=== PATIENT | male | born 1955 | race Two or more races ===

== ENCOUNTER 2024-07-02 20:02 | Emergency (ER) | payer MEDICARE, OTHER ==
[~2024-07-02] VITALS: Ht 182.9 cm; Wt 100.0 kg
[2024-07-02 20:02] VITALS: BP 0/0; PULSE 0; RESP 0; O2SAT 0
--- NOTE | 2024-07-02 20:29 | ED.PDOC ---
CPR-HPI HPI Comments 68 y/o M BRI, presents to the ED for CC of full arrest. Per EMS, patient is coming from home where he was witnessed by family to collapse after complaining of back pain. Per EMS, emergency medical personnel received the call at 0; and arrived to the scene at 1954. In route to ED, patient received x5 epinephrin and x2 Narcan with no ROSC; patient was in PEA 80-138. Patient arrived to the ED at 1999 where compressions were administered via SOREN device. Time Seen by MD: 20:00 Reviewed Notes: Nurses Notes, Preventive Maintenance Engineer Notes, Medications, Allergies Information Source: Patient, Emergency Med Personnel Mode of Arrival: EMS Timing: Minutes Duration: Down time prior EMS: (35), Total time prior hopital: (5) Onset: At rest Available Hx: Unknown Inital rhythm: PEA Treatment: CPR, Intubation Associated signs and symptoms: None Past Medical History PAST MEDICAL HISTORY: HTN Surgical History: Unknown Family History Family History: Unknown Social History Smoker: Unobtainable Alcohol: Unobtainable Drugs: Unobtainable Lives In: Unobtainable Unable to Obtain due to: Medical Urgency Physical Exam General Appearance: Severe Distress HEENT: Other (Pupils are fixed and mid-range) Neck: Supple Respiratory: Other (The patient was being ventilated by bag out mass) Cardiovascular: Other (Pulseless) Breast Exam: Deferred Gastrointestinal: No Organomegaly, Soft Genitalia: Deferred Pelvic: Deferred Rectal: Deferred Extremities: No pedal edema, Other (Pulseless) Musculoskeletal : Apperance: Normal Neurologic: psychiatric orderly II-XII nml as Tested, Other (GCS of three) Cerebellar Function: Unable to Test Reflexes: None Skin: Dry, Pallor, Warm Lymphatic: No Adenopathy Was a procedure done? Was a procedure done?: Yes Sedation Sedation?: No Intubation Indication: Respiratory Insufficiency Prep: No Preoxygenation Pretreated with: Nothing Medicated with: Nothing Intubation Approach: Orotracheal Intubation size: cm (8.0) Informed consent obtained: Yes Risks/benefits/alt described: No Differential Dx CPR Differential Diagnosis: Cardiopulmonary arrest X-Ray, Labs, Meds, VS Vital Signs Date Time Temp Pulse Resp B/P (MAP) Pulse Ox O2 Delivery O2 Flow Rate FiO2 07/02/24 20:42 0 0 Ambu-Bag 0 07/02/24 20:02 97.9 0 0 0/0 (0) 0 Despite our efforts, the patient has ACLS protocol The patient was intubated upon arrival Time of 1ST Reevaluation: 20:30 Reevaluation 1ST: Unchanged Patient Education/Counseling: Other (We discussed the findings with the patient's family) Family Education/Counseling: Diagnosis, Treatment Departure 1 Departure Time of Disposition: 21:19 Impression: Primary Impression: Cardiopulmonary arrest Disposition: 20 Condition: Other (The patient was ) Critical Care Note Critical Care Time?: No Heart Score Heart Score: Heart Score Response (Comments) Value History N/A 0 EKG N/A 0 Age N/A 0 Risk Factors N/A 0 Troponin N/A 0 Total 0 Stability Stability form required: No I personally scribed for BOB GEORGE MD ([email or web address]) on 07/02/24 at 20:28. Electronically submitted by Fiona Wu ([email or web address]). I personally scribed for BOB GEORGE MD ([email or web address]) on 07/02/24 at 20:35. Electronically submitted by Fiona Wu ([email or web address]). BOB GEORGE MD Jul 02, 2024 20:28
--- NOTE | 2024-07-02 20:42 | RESUS ---
CODE BLUE ASSESSSMENT History of Events History of Events: Pt BIBA with CPR in progress via SOREN. Per EMS, pt was complaining of back pain when he stood up and collapsed. Bystander CPR initiated. Pt has been PEA throughout transport. IO to proximal tibia, Epi x5 rounds given, Narcan 2mg given, and attempted intubation by EMS unsuccessful. Field BS 125. Initial Information Date: Jul 02, 2024 Time: 20:00 Location of Arrest: In Field Arrest Witnessed: Yes CPR started by whom: Bystander Last seen well: 1914 Pre-Hospital Care: ACLS Type of arrest: Cardiac, Respiratory, Adult, Witnessed Spontaneous Respirations: No Pulse Present: No Monitoring: ECG, Pulse Oximetry, Telemetry Crash Cart Opened and Supplies: Yes Airway Ventilation Breathing at Onset: Assisted Oxygen Delivery Method: Ambu-Bag Time of first Assisted Ventila: 20:00 Artificial Ventilation: Bag/Mask Intubation Time: 20:01 Intubation Size: 8.0 cuffed Intubated by: Dr Campos Intubation Attempts: 1 (1 attempt by ER staff; 1 attempt in-field by EMS) Intubated orally: Yes Intubated Nasaly: No Tube secured at: 24 (cm @ lip) Cricoid pressure done: Yes CO2 indicator used: Yes Confirmation: Auscultation, Exhaled CO2 Circulation Circulation #1: Time: 20:01 Pulse Rate (adult): 0 Blood Pressure Systolic: 0 Blood Pressure Diastolic: 0 Temperature (Fahrenheit): 97.9 (F; Rectal) Circulation #2: Time: 20:04 Pulse Rate (adult): 0 Blood Pressure Systolic: 0 Blood Pressure Diastolic: 0 Circulation Comment: PEA Circulation #3: Time: 20:06 Pulse Rate (adult): 0 Blood Pressure Systolic: 0 Blood Pressure Diastolic: 0 Circulation Comment: PEA Circulation #4: Time: 20:08 Pulse Rate (adult): 0 Blood Pressure Systolic: 0 Blood Pressure Diastolic: 0 Circulation Comment: PEA Circulation #5: Time: 20:10 Pulse Rate (adult): 0 Blood Pressure Systolic: 0 Blood Pressure Diastolic: 0 Circulation Comment: PEA Circulation #6: Time: 20:11 Pulse Rate (adult): 0 Blood Pressure Systolic: 0 Blood Pressure Diastolic: 0 Circulation Comment: TOD Procedure - Intraosseous Site of Intraosseous: Tibia soheila-medial (Left proximal) Intraosseous inserted by: EMS Medications & Response Medications and Responses #1: Medication Time: 20:01 ADULT Medications Given ADULT: Epinephrine 1 mg Route of Administration: IO Heart Rate: 0 Blood Pressure Systolic: 0 Blood Pressure Diastolic: 0 Respiratory Rate: 0 O2 Sat by Pulse Oximetry: 0 EKG Rhythm: PEA Medications and Responses #2: Medication Time: 20:02 ADULT Medications Given ADULT: Sodium Bacarbinate 50 meq Route of Administration: IO Heart Rate: 0 EKG Rhythm: PEA Blood Pressure Systolic: 0 Blood Pressure Diastolic: 0 Respiratory Rate: 0 EKG Rhythm: PEA Medications and Responses #3: Medication Time: 20:05 ADULT Medications Given ADULT: Epinephrine 1 mg, Calcium Chloride 10 mL Route of Administration: IO Heart Rate: 0 EKG Rhythm: PEA Blood Pressure Systolic: 0 Blood Pressure Diastolic: 0 Respiratory Rate: 0 EKG Rhythm: PEA Medications and Responses #4: Medication Time: 20:08 ADULT Medications Given ADULT: Epinephrine 1 mg Route of Administration: IO Heart Rate: 0 EKG Rhythm: PEA Blood Pressure Systolic: 0 Blood Pressure Diastolic: 0 Respiratory Rate: 0 EKG Rhythm: PEA Nurses Notes [place] Coma Scale Eye Opening: None (1) [place] Coma Scale Verbal: None (1) [place] Coma Scale Motor: None (1) [place] Total: 3 Pupil Reaction: Non Reactive Bedside Blood Glucose: 88 Time Code Ended Time Code Ended: 20:11 Post Arrest Status: Outcome of code: Unsuccessful Patient pronounced by: Dr Campos Time patient pronounced: 20:11 Code Team Present: Dr Campos - ER ; Jason Self RN - ER Charge; Dara Dai RN - Petrography Teacher; RT Jose; Bette Christianson RN; Ninfa Mcgarry, RN; Monica Pinon, RN; Resident MD Elizabeth; Jaime Christianson, ERT; AMILCAR Chapin Ashley Jul 02, 2024 20:42
== END 2024-07-02 20:11 ==
LOC: ER 20:02 → EDBD 20:02 → ER 20:11
DX: I46.9 Cardiac arrest, cause unspecified (principal); I10 Essential (primary) hypertension
CPT/HCPCS: 31500; 92950